=== PATIENT | female | born 1995 | race Caucasian/White ===

== ENCOUNTER 2017-06-05 20:37 | Emergency (ER) | payer OTHER ==
[2017-06-05] MEDS ORDERED: Phenazopyridine TAB* 100 MG PO ONE (21:07)
[2017-06-05] MEDS ORDERED: Nitrofurantoin Macrocrystals* 50 MG CAP PO ONE (21:08)
--- NOTE | 2017-06-05 21:11 | UC ---
Complaint Female HPI - HPI Summary HPI Summary: Patient presents to the with CC of urgency, frequency, burning upon urination. Dark colored, cloudy urine. Denies flank pain. Denies diaphoresis and chills. Denies known fever. No abnormal vaginal discharge reported. Otherwise healthy. History of UTI's. Feels similar. Symptoms started this evening. - History Of Current Complaint Chief Complaint: UCGU Stated Complaint: UTI Time Seen by Provider: 06/05/17 21:00 Hx Obtained From: Patient Hx Last Menstrual Period: 06/04/17 ?: No Onset/Duration: Sudden Onset Timing: Constant Severity Initially: Mild Severity Currently: Mild Pain Intensity: 2 Pain Scale Used: 0-10 Numeric Associated Signs And Symptoms: Positive: Negative - Allergies/Home Medications Allergies/Adverse Reactions: Allergies Allergy/AdvReac Type Severity Reaction Status Date / Time Sulfamethoxazole Allergy Hives Verified 06/05/17 20:49 w/Trimethoprim [From Bactrim] Home Medications: Home Medications Bcp 1 tab PO DAILY 06/05/17 [History] PMH/Surg Hx/FS Hx/Imm Hx Previously Healthy: Yes - Surgical History Surgical History: Yes Surgery Procedure, Year, and Place: nose x 2 - Family History Known Family History: Positive: Unknown - Social History Occupation: Employed Part-time Lives: With Family Alcohol Use: None Substance Use Type: None Smoking Status (MU): Never Smoked Tobacco Review of Systems Constitutional: Negative Skin: Negative Respiratory: Negative Cardiovascular: Negative Gastrointestinal: Negative Genitourinary: Dysuria, Frequency, Urgency Motor: Negative Musculoskeletal: Negative Neurological: Negative Psychological: Negative Is Patient Immunocompromised?: No All Other Systems Reviewed And Are Negative: Yes Physical Exam Triage Information Reviewed: Yes Appearance: Well-Appearing, Well-Nourished Vital Signs: Initial Vital Signs Temp 98.3 F 06/05/17 20:50 Pulse 80 06/05/17 20:50 Resp 16 06/05/17 20:50 BP 124/87 06/05/17 20:50 Pulse Ox 99 06/05/17 20:50 Vital Signs Reviewed: Yes Eye Exam: Normal Eyes: Positive: Conjunctiva Clear Neck exam: Normal Neck: Positive: No Lymphadenopathy Respiratory Exam: Normal Respiratory: Positive: Chest non-tender, Lungs clear, Normal breath sounds, No respiratory distress, No accessory muscle use Cardiovascular Exam: Normal Cardiovascular: Positive: RRR, No Murmur, Pulses Normal, Brisk Capillary Refill Musculoskeletal Exam: Normal Musculoskeletal: Positive: Strength Intact Neurological Exam: Normal Neurological: Positive: Alert Psychological: Positive: Normal Response To Family Skin Exam: Normal Complaint Female Dx - Course Course Of Treatment: UA performed. WBC and leuks seen. Patient experiencing urgency, frequency and pain on urination. Dark urine noted. No abnormal vaginal discharge or bleeding. No CVA tenderness bilaterally. No previous UTI within last 6 months and no recent Augmentin use. Will treat for uncomplicated UTI. Pyridium given for comfort. Return precautions and follow up with PCP. - Differential Dx/Diagnosis Differential Diagnosis/HQI/PQRI: Renal Colic, Urinary Tract Infection Provider Diagnoses: UTI Discharge - Discharge Plan Condition: Stable Disposition: HOME Prescriptions: Nitrofurantoin Monohyd Macro [Macrobid] 100 mg PO BID #10 cap Phenazopyridine TAB* [Pyridium 100 mg TAB*] 100 mg PO TID #12 tab Patient Education Materials: Urinary Tract Infection in Women (ED) Additional Instructions: Dx. Urinary Tract Infection Drink plenty of fluids. Supplement with cranberry or ruiz juice. You may also take an over the counter cranberry supplement. If you have any questions about this, you may ask your pharmacist. If your symptoms have not improved in 1-2 days, if you develop fever, sweats or chills, please go to your emergency room, or call your PCP. Antibiotics were prescribed to you. Please take as directed. Supplement with over the counter probiotics on the opposite schedule of your antibiotic to prevent secondary infections. Do not take together as they may counteract each other. Pyridium: This medication is used to treat pain, burning, increased urination, and increased urge to urinate. These symptoms are usually caused by infection, injury, surgery, catheter, or other conditions that irritate the lower urinary tract. Pyridium will treat the symptoms of a urinary tract infection, but this medication does not treat the actual infection. Take the antibiotic that your doctor prescribes to treat your infection. Pyridium will most likely darken the color of your urine to an orange or red color. This is a normal effect and is not cause for alarm unless you have other symptoms such as pale or yellowed skin, fever, stomach pain, nausea, and vomiting. Darkened urine may also cause stains to your underwear, which may or may not be removed by laundering. It can also permanently stain soft contact lenses, and you should not wear them while taking this medicine.
== END 2017-06-05 21:18 | disposition home or self-care (01) ==
LOC: UCCORT 20:37
DX: N39.0 Urinary tract infection, site not specified (principal)
CPT/HCPCS: 81003; 87077; 87086; 87186; 99202; A9270-GY; G0463